=== PATIENT | male | born 1995 | race Caucasian/White ===

== ENCOUNTER 2017-09-15 10:15 | Emergency (ER) | payer BC ==
[2017-09-15 10:19] VITALS: BP 134/78
[2017-09-15 11:31] LABS: APPEARANCE,URINE CLEAR; BILIRUBIN,URINE NEGATIVE (NEGATIVE); COLOR,URINE AMBER; GLUCOSE, URINE NEGATIVE (NEGATIVE); KETONES,URINE NEGATIVE (NEGATIVE); LEUKOCYTE ESTERASE,URINE NEGATIVE (NEGATIVE); NITRITE,URINE POSITIVE (NEGATIVE); PROTEIN,URINE NEGATIVE (NEGATIVE); URINE SPECIFIC GRAVITY 1.011
--- NOTE | 2017-09-15 11:32 | ER Document Report ---
ED GI/ - General Chief Complaint: Abdominal Pain Stated Complaint: PAINFUL URINATION Time Seen by Provider: 09/15/17 11:25 Mode of Arrival: Ambulatory Information source: Patient Notes: This 22-year-old male patient comes emergency room complaining of frequency and dysuria. He reports Wednesday p.m. on 09/13/2017 of having some partial flow when he tried to urinate, reports something shot out and then the flow was okay but he began having burning with urination. The burning is only controlled when he takes Azo-Standard. There is no fevers. This morning he noted a reddish tinge to the urine. He also has complained of her left upper quadrant abdominal pain and right lower quadrant abdominal pain which moves around and states "if I move , it moves". No past history of renal stones. TRAVEL OUTSIDE OF THE [place] IN LAST 30 DAYS: No - Related Data Allergies/Adverse Reactions: No Known Allergies Allergy (Verified 09/15/17 11:53) Past Medical History - General Information source: Patient - Social History Smoking Status: Current Some Day Smoker Cigarette use (# per day): Yes - 1 cigarette per week Chew tobacco use (# tins/day): Yes - dip Smoking Education Provided: Yes - 3 minutes Frequency of alcohol use: None Drug Abuse: None Lives with: Spouse/Significant other Family History: Reviewed & Not Pertinent Patient has suicidal ideation: No Patient has homicidal ideation: No - Medical History Medical History: Negative Surgical Hx: Negative Review of Systems - Review of Systems Constitutional: No symptoms reported EENT: No symptoms reported Cardiovascular: No symptoms reported Respiratory: No symptoms reported Gastrointestinal: See HPI Genitourinary: See HPI Male Genitourinary: No symptoms reported Musculoskeletal: No symptoms reported Skin: No symptoms reported Hematologic/Lymphatic: No symptoms reported Neurological/Psychological: No symptoms reported Physical Exam - Vital signs Vitals: Temp Pulse Resp BP Pulse Ox 98.2 F 79 15 134/78 H 98 09/15/17 10:18 09/15/17 10:18 09/15/17 10:18 09/15/17 10:18 09/15/17 10:18 Interpretation: Normal - General General appearance: Appears well, Alert In distress: None - HEENT Head: Normocephalic, Atraumatic Eyes: Normal Pupils: PERRL - Respiratory Respiratory status: No respiratory distress Breath sounds: Normal - Cardiovascular Rhythm: Regular Heart sounds: Normal auscultation Murmur: No - Abdominal Inspection: Normal Bowel sounds: Normal Tenderness: Nontender - Back Back: Normal. No: CVA tenderness - Extremities General upper extremity: Normal inspection General lower extremity: Normal inspection - Neurological Neuro grossly intact: Yes - Psychological Associated symptoms: Normal affect, Normal mood - Skin Skin Temperature: Warm Skin Moisture: Dry Skin Color: Normal Course - Vital Signs Vital signs: Temp Pulse Resp BP Pulse Ox 98.2 F 79 18 134/78 H 98 09/15/17 10:18 09/15/17 10:18 09/15/17 11:29 09/15/17 10:18 09/15/17 10:18 - Laboratory Laboratory results interpreted by me: 09/15/17 11:05 Urine Nitrite POSITIVE H Urine Urobilinogen 2.0 H Discharge - Discharge Clinical Impression: Urinary tract infection Qualifiers: Urinary tract infection type: urethritis Qualified Code(s): N34.2 - Other urethritis Condition: Stable Disposition: HOME, SELF-CARE Additional Instructions: Urinary Tract Infection: Your evaluation indicates that you have a urinary tract infection. This is due to germs growing in the bladder. This is a common problem. This infection usually responds quickly to antibiotics. Your antibiotic should be taken exactly as prescribed. Drink plenty of fluids -- three to four quarts a day. Occasionally, a bladder anesthetic will be prescribed to help stop the feeling of urgency until the antibiotic has a chance to clear the infection. This may cause your urine to be dark orange. Certain urine infections require a culture. If the doctor obtained a culture, the results will be back in two days. You should call to see if a change in treatment is needed. A repeat urinalysis after you finish treatment is often recommended. The physician will let you know if further testing is required. Call the doctor if you develop fever, chills, flank pain, inability to urinate, or blood in the urine. //////////////////////////////////////////////////////////////////////////////// //////////////////////////////////////////////////////////////////////////////// ///////////////// Take the antibiotics as prescribed. Take lots of fluids throughout the day in the evening. Continue taking the Azo-Standard for the burning sensation if needed. Follow-up with a local primary care provider if not improving. RETURN TO THE EMERGENCY ROOM IF ANY NEW OR WORSENING SYMPTOMS. Prescriptions: Doxycycline Hyclate 100 mg PO BID #14 tablet
== END 2017-09-15 12:12 | disposition home or self-care (01) ==
LOC: ER 10:15
DX: N34.2 Other urethritis (principal); F17.210 Nicotine dependence, cigarettes, uncomplicated; Z71.6 Tobacco abuse counseling
CPT/HCPCS: 81001; 87086; 99284

== ENCOUNTER 2017-09-17 10:56 | Emergency (ER) | payer BC ==
--- NOTE | 2017-09-17 12:16 | ER Document Report ---
ED General - General Chief Complaint: Urinary Problem Stated Complaint: BLOOD IN URINE Time Seen by Provider: 09/17/17 12:10 Mode of Arrival: Ambulatory Information source: Patient Notes: 22-year-old male presents with 5 day duration of burning on urination. Patient was seen here treated for urinary tract infection was noted to have positive nitrates in the urine. Urine culture did not grow out any organism. Patient notes he had some blood in his urine. Patient notes enlarged lymph nodes in his groin now TRAVEL OUTSIDE OF THE [place] IN LAST 30 DAYS: No - HPI Onset: Last week Onset/Duration: Persistent Quality of pain: Burning Severity: Mild Pain Level: 1 Associated symptoms: Other Exacerbated by: Other - urination Relieved by: Denies Similar symptoms previously: Yes Recently seen / treated by doctor: Yes - Related Data Allergies/Adverse Reactions: No Known Allergies Allergy (Verified 09/15/17 11:53) Past Medical History - Social History Smoking Status: Current Every Day Smoker Cigarette use (# per day): No Chew tobacco use (# tins/day): Yes - dip Smoking Education Provided: No Frequency of alcohol use: None Drug Abuse: None Family History: Reviewed & Not Pertinent Patient has suicidal ideation: No Patient has homicidal ideation: No Renal/ Medical History: Denies: Hx Peritoneal Dialysis Review of Systems - Review of Systems Notes: REVIEW OF SYSTEMS: CONSTITUTIONAL : Denies fever, chills, or sweats. Denies recent illness. EENT: Denies eye, ear, throat, or mouth pain or symptoms. Denies nasal or sinus congestion or discharge. Denies throat, tongue, or mouth swelling or difficulty swallowing. CARDIOVASCULAR: Denies chest pain. Denies palpitations or racing or irregular heart beat. Denies ankle edema. RESPIRATORY: Denies cough, cold, or chest congestion. Denies shortness of breath, difficulty breathing, or wheezing. GASTROINTESTINAL: Denies abdominal pain or distention. Denies nausea, vomiting , or diarrhea. Denies blood in vomitus, stools, or per rectum. Denies black, tarry stools. Denies constipation. GENITOURINARY: blood in urine burning on urination e. MUSCULOSKELETAL: Denies back or neck pain or stiffness. Denies joint pain or swelling. SKIN: Denies rash, lesions or sores. HEMATOLOGIC : Denies easy bruising or bleeding. LYMPHATIC: Admits to groin swelling NEUROLOGICAL: Denies confusion or altered mental status. Denies passing out or loss of consciousness. Denies dizziness or lightheadedness. Denies headache. Denies weakness or paralysis or loss of use of either side. Denies problems with gait or speech. Denies sensory loss, numbness, or tingling. Denies seizures. PSYCHIATRIC: Denies anxiety or stress. Denies depression, suicidal ideation, or homicidal ideation. ALL OTHER SYSTEMS REVIEWED AND NEGATIVE. Dictation was performed using [employer] voice recognition software PHYSICAL EXAMINATION: GENERAL: Well-appearing, well-nourished and in no acute distress. HEAD: Atraumatic, normocephalic. EYES: Pupils equal round and reactive to light, extraocular movements intact, sclera anicteric, conjunctiva are normal. ENT: Nares patent, oropharynx clear without exudates. Moist mucous membranes. NECK: Normal range of motion, supple without lymphadenopathy LUNGS: Breath sounds clear to auscultation bilaterally and equal. No wheezes rales or rhonchi. HEART: Regular rate and rhythm without murmurs ABDOMEN: Soft, nontender, nondistended abdomen. No guarding, no rebound. No masses appreciated. Musculoskeletal: Normal range of motion, no pitting or edema. No cyanosis. NEUROLOGICAL: Cranial nerves grossly intact. Normal speech, normal gait. Normal sensory, motor exams PSYCH: Normal mood, normal affect. SKIN: Bilateral inguinal adenopathy warm, Dry, normal turgor, no rashes or lesions noted. Physical Exam - Vital signs Vitals: Temp Pulse Resp BP Pulse Ox 98.0 F 84 20 136/83 H 97 09/17/17 11:13 09/17/17 11:13 09/17/17 11:13 09/17/17 11:13 09/17/17 11:13 Course - Re-evaluation Re-evalutation: 09/17/17 12:[address] pending 09/17/17 19:14 Patient's urinalysis is consistent with nitrates, the CT itself notes no acute abnormality, there is no STD noted on urinalysis. Therefore I believe the patient has a resistant UTI which for some reason had no growth, I will switch antibiotic from doxycycline to Cipro and give the patient urology follow-up as I am not 100% certain why he is having the symptoms. Patient has been made aware of this and understands and will follow-up with urology After performing a Medical Screening Examination, I estimate there is LOW risk for ACUTE APPENDICITIS, BOWEL OBSTRUCTION, ACUTE CHOLECYSTITIS, PERFORATED DIVERTICULITIS, INCARCERATED HERNIA, PANCREATITIS, TESTICULAR TORSION or PERFORATED ULCER, thus I consider the discharge disposition reasonable. Also, there is no evidence or peritonitis, sepsis, or toxicity. I have reevaluated this patient multiple times and no significant life threatening changes are noted. The patient and I have discussed the diagnosis and risks, and we agree with discharging home with close follow-up with the understanding that symptoms and presentations can change. We also discussed returning to the Emergency Department immediately if new or worsening symptoms occur. We have discussed the symptoms which are most concerning (e.g., bloody stool, fever, changing or worsening pain, intractable vomiting - standard verbal up date) that necessitate immediate return. - Vital Signs Vital signs: Temp Pulse Resp BP Pulse Ox 98.0 F 72 20 148/90 H 99 09/17/17 11:13 09/17/17 14:18 09/17/17 11:13 09/17/17 14:18 09/17/17 14:18 - Laboratory Laboratory results interpreted by me: 09/17/17 12:15 Urine Nitrite POSITIVE H Urine Urobilinogen 4.0 H - Diagnostic Test Radiology reviewed: Image reviewed, Reports reviewed - no Acute abnormality Discharge - Discharge Clinical Impression: Dysuria Urinary tract infection Qualifiers: Urinary tract infection type: acute cystitis Hematuria presence: without hematuria Qualified Code(s): N30.00 - Acute cystitis without hematuria Condition: Stable Disposition: HOME, SELF-CARE Instructions: Urinary Tract Infection ([facility]) Prescriptions: Ciprofloxacin HCl [Cipro 500 mg Tablet] 500 mg PO BID #20 tablet Referrals: ARON GALAN MD [ACTIVE STAFF] - Follow up in 3-5 days
[2017-09-17 12:35] LABS: APPEARANCE,URINE CLEAR; BILIRUBIN,URINE NEGATIVE (NEGATIVE); GLUCOSE, URINE NEGATIVE (NEGATIVE); KETONES,URINE NEGATIVE (NEGATIVE); LEUKOCYTE ESTERASE,URINE NEGATIVE (NEGATIVE); NITRITE,URINE POSITIVE (NEGATIVE); PROTEIN,URINE NEGATIVE (NEGATIVE); URINE SPECIFIC GRAVITY 1.013
--- NOTE | 2017-09-17 12:37 | RADIOLOGY REPORT (SQ) ---
EXAM DESCRIPTION: CT LTD RENAL STONE PROTOCOL ON COMPLETED DATE/TIME: 09/17/2017 12:27 pm REASON FOR STUDY: hematuria COMPARISON: None. TECHNIQUE: CT scan of the abdomen and pelvis performed without intravenous or oral contrast. Images reviewed with lung, soft tissue, and bone windows. Reconstructed coronal and sagittal MPR images revi ewed. All images stored on PACS. All CT scanners at this facility use dose modulation, iterative reconstruction, and/or weight based d osing when appropriate to reduce radiation dose to as low as reasonably achievable (ALARA). [facility]: Dose Right [facility]: CareDose [facility]: Dose Right [facility]: Teradose 4D [facility]: [employer] RADIATION DOSE: mGy. LIMITATIONS: None. FINDINGS: LOWER CHEST: No significant findings. No nodules or infiltrates. NON-CONTRASTED LIVER, SPLEEN, ADRENALS: Evaluation limited by lack of IV contrast. No identified sign ificant masses. PANCREAS: No masses. No peripancreatic inflammatory changes. GALLBLADDER: No identified stones by CT criteria. No inflammatory changes to suggest cholecystitis. RIGHT KIDNEY AND URETER: No suspicious masses. Assessment limited by lack of IV contrast. No signif icant calcifications. No hydronephrosis or hydroureter. LEFT KIDNEY AND URETER: No suspicious masses. Assessment limited by lack of IV contrast. No signifi cant calcifications. No hydronephrosis or hydroureter. AORTA AND RETROPERITONEUM: No aneurysm. No retroperitoneal masses or adenopathy. BOWEL AND PERITONEAL CAVITY: No obvious masses or inflammatory changes. No free fluid. A moderate am ount a gas and fecal material is identified throughout the colon. APPENDIX: Not identified PELVIS, BLADDER, AND ABDOMINAL WALL:No abnormal masses. No free fluid. Bladder normal. BONES: No significant findings. OTHER: No other significant finding. IMPRESSION: NO SIGNIFICANT OR ACUTE PROCESS IN THE ABDOMEN OR PELVIS. COMMENT: Quality ID # [id number]: Final reports with documentation of one or more dose reduction techniques (e.g., Automated exposure control, adjustment of the mA and/or kV according to patient size, use of iterative reconstruction technique) TECHNICAL DOCUMENTATION: JOB ID: [id number] [employer]- All Rights Reserved
[2017-09-17 12:40] LABS: COLOR,URINE DARK YELLOW
[2017-09-17 14:00] LABS: CHLAM PCR NOT DETECTED (NOT DETECT); GON PCR NOT DETECTED (NOT DETECT)
[2017-09-17 14:24] VITALS: BP 148/90
== END 2017-09-17 14:24 | disposition home or self-care (01) ==
LOC: ER 10:56
DX: N30.00 Acute cystitis without hematuria (principal); R59.0 Localized enlarged lymph nodes; F17.200 Nicotine dependence, unspecified, uncomplicated
CPT/HCPCS: 76380; 81001; 87491; 87591; 99284

== ENCOUNTER 2018-04-06 11:37 | Emergency (ER) | payer OTHER, BC ==
--- NOTE | 2018-04-06 12:13 | ER Document Report ---
ED General - General Chief Complaint: Chest Pain Stated Complaint: CHEST TIGHTNESS Time Seen by Provider: 04/06/18 12:10 Notes: Chief complaint: Chest pain History of complain:( obtained from----patient) 23 years old male presents today with on and off left-sided chest pain and left arm numbness. Especially at work when he stressed out. One episode happened 4 months ago again yesterday and today. Currently has no pain or discomfort. It lasted for about an hour at work. Not associated with any nausea vomiting palpitation or diaphoresis. He also states that he gets cramps and numbness and tingling sensation of both upper limbs and lower limbs on and off. Onset: As above as above Duration: As above Severity: Mild Quality: Context: Stress at work Exacerbating factor and relieving factors: Work related REVIEW OF SYSTEMS: CONSTITUTIONAL : Denies fever, chills, or sweats. Denies recent illness. EENT: Denies eye, ear, throat, or mouth pain or symptoms. Denies nasal or sinus congestion or discharge. Denies throat, tongue, or mouth swelling or difficulty swallowing. CARDIOVASCULAR: Denies chest pain. Denies palpitations or racing or irregular heart beat. Denies ankle edema. RESPIRATORY: Denies cough, cold, or chest congestion. Denies shortness of breath, difficulty breathing, or wheezing. GASTROINTESTINAL: Denies distention. Denies nausea, vomiting, or diarrhea. Denies blood in vomitus, stools, or per rectum. Denies black, tarry stools. Denies constipation. GENITOURINARY: Denies difficulty urinating, painful urination, burning, frequency, blood in urine, or discharge. FEMALE GENITOURINARY: Denies vaginal bleeding, heavy or abnormal periods, irregular periods. Denies vaginal discharge or odor. MUSCULOSKELETAL: Denies back or neck pain or stiffness. Denies joint pain or swelling. SKIN: Denies rash, lesions or sores. HEMATOLOGIC : Denies easy bruising or bleeding. LYMPHATIC: Denies swollen, enlarged glands. NEUROLOGICAL: Denies confusion or altered mental status. Denies passing out or loss of consciousness. Denies dizziness or lightheadedness. Denies headache. Denies weakness or paralysis or loss of use of either side. Denies problems with gait or speech. Denies sensory loss, numbness, or tingling. Denies seizures. PSYCHIATRIC: Denies anxiety or stress. Denies depression, suicidal ideation, or homicidal ideation. ALL OTHER SYSTEMS REVIEWED AND NEGATIVE. PHYSICAL EXAMINATION: GENERAL: Well-appearing, well-nourished and in no acute distress. HEAD: Atraumatic, normocephalic. EYES: Pupils equal round and reactive to light, extraocular movements intact, conjunctiva are normal. ENT: Nares patent, oropharynx clear without exudates. Moist mucous membranes. NECK: Normal range of motion, supple without lymphadenopathy LUNGS: Breath sounds clear to auscultation bilaterally and equal. No wheezes rales or rhonchi. HEART: Regular rate and rhythm without murmurs ABDOMEN: Soft, nontender, nondistended abdomen. No guarding, no rebound. No masses appreciated. Examination of genitals-deferred Musculoskeletal: Normal range of motion, no pitting or edema. No cyanosis. NEUROLOGICAL: Cranial nerves grossly intact. Normal speech, normal gait. Normal sensory, motor exams PSYCH: Normal mood, normal affect. SKIN: Warm, Dry, normal turgor, no rashes or lesions noted. Dictation was performed using [employer] voice recognition software TRAVEL OUTSIDE OF THE [place] IN LAST 30 DAYS: No - HPI Notes: Dictated - Related Data Allergies/Adverse Reactions: No Known Allergies Allergy (Verified 04/06/18 11:38) Past Medical History - Social History Smoking Status: Never Smoker Chew tobacco use (# tins/day): No Frequency of alcohol use: None Drug Abuse: None Lives with: Family Family History: Reviewed & Not Pertinent Patient has suicidal ideation: No Patient has homicidal ideation: No Renal/ Medical History: Denies: Hx Peritoneal Dialysis Review of Systems - Review of Systems Notes: Dictated Physical Exam - Vital signs Vitals: Temp Pulse Resp BP Pulse Ox 97.9 F 65 18 126/81 H 98 04/06/18 11:48 04/06/18 11:48 04/06/18 11:48 04/06/18 11:48 04/06/18 11:48 - Notes Notes: Dictated Course - Vital Signs Vital signs: Temp Pulse Resp BP Pulse Ox 97.9 F 87 16 128/83 H 90 L 04/06/18 14:10 04/06/18 14:10 04/06/18 14:10 04/06/18 14:10 04/06/18 14:10 - Diagnostic Test Radiology reviewed: Reports reviewed - Chest x-ray reported by radiologist as normal Discharge - Discharge Clinical Impression: Anxiety Chest pain Qualifiers: Chest pain type: unspecified Qualified Code(s): R07.9 - Chest pain, unspecified Condition: Fair Disposition: HOME, SELF-CARE Instructions: Chest Wall Pain ([facility]), Anxiety ([facility]) Prescriptions: Buspirone HCl [Buspar 5 mg Tablet] 1 tab PO BID #60 tab
--- NOTE | 2018-04-06 13:20 | RADIOLOGY REPORT (SQ) ---
EXAM DESCRIPTION: CHEST 2 VIEWS COMPLETED DATE/TIME: 04/06/2018 12:25 pm REASON FOR STUDY: chest pain COMPARISON: None. EXAM PARAMETERS: NUMBER OF VIEWS: two views TECHNIQUE: Digital Frontal and Lateral radiographic views of the chest acquired. RADIATION DOSE: NA LIMITATIONS: none FINDINGS: LUNGS AND PLEURA: No opacities, masses or pneumothorax. No pleural effusion. MEDIASTINUM AND HILAR STRUCTURES: No masses or contour abnormalities. HEART AND VASCULAR STRUCTURES: Heart normal size. No evidence for failure. BONES: No acute findings. HARDWARE: None in the chest. OTHER: No other significant finding. IMPRESSION: NO ACUTE RADIOGRAPHIC FINDING IN THE CHEST. TECHNICAL DOCUMENTATION: JOB ID: [id number] [employer]- All Rights Reserved Reading location - IP/workstation name: [email or web address]
[2018-04-06 13:37] LABS: CREATINE KINASE MB < 0.22 ng/mL (<4.55); TROPONIN I < 0.012 ng/mL
[2018-04-06 14:11] VITALS: BP 128/83
--- NOTE | 2018-04-06 21:22 | EKG REPORT ---
SEVERITY:- NORMAL ECG - SINUS RHYTHM : Confirmed by: Dorie Crandall MD 06-Apr-2018 21:22:23
== END 2018-04-06 14:18 | disposition home or self-care (01) ==
LOC: ER 11:37
DX: F41.9 Anxiety disorder, unspecified (principal); F43.9 Reaction to severe stress, unspecified; R07.89 Other chest pain; R20.0 Anesthesia of skin; R20.2 Paresthesia of skin; R25.2 Cramp and spasm
CPT/HCPCS: 36415; 71046; 82550; 82553; 84484; 93005; 93010; 99285

== ENCOUNTER 2018-07-25 10:37 | Emergency (ER) | payer BC ==
--- NOTE | 2018-07-25 11:14 | ER Document Report ---
ED Medical Screen (RME) - General Chief Complaint: Dizziness Stated Complaint: HEAD INJURY Time Seen by Provider: 07/25/18 11:06 Notes: 23-year-old male patient reports 2 days ago about 2 PM struck his frontal head area on excavator bucket as he was trying to dodge a mud puddle and did not see the bucket because he was looking down. There was no loss of consciousness, however he states that it did "not to be silly". He reports that evening he began having dizziness that has been persistent. The dizziness is not provoked by head movement, bending over or standing up etc. He states it seems to be made worse when he is taking a shower. There is no nausea or vomiting. I have greeted and performed a rapid initial assessment of this patient. A comprehensive ED assessment and evaluation of the patient, analysis of test results and completion of the medical decision making process will be conducted by additional ED providers. TRAVEL OUTSIDE OF THE [place] IN LAST 30 DAYS: No - Related Data Allergies/Adverse Reactions: No Known Allergies Allergy (Verified 04/06/18 11:38) Past Medical History Renal/ Medical History: Denies: Hx Peritoneal Dialysis Physical Exam - Vital signs Vitals: Temp Pulse Resp BP Pulse Ox 97.1 F 90 18 148/90 H 100 07/25/18 10:43 07/25/18 10:43 07/25/18 10:43 07/25/18 10:43 07/25/18 10:43 Course - Vital Signs Vital signs: Temp Pulse Resp BP Pulse Ox 97.1 F 90 18 148/90 H 100 07/25/18 10:43 07/25/18 10:43 07/25/18 10:43 07/25/18 10:43 07/25/18 10:43
--- NOTE | 2018-07-25 11:54 | RADIOLOGY REPORT (SQ) ---
EXAM DESCRIPTION: CT HEAD WITHOUT COMPLETED DATE/TIME: 07/25/2018 11:32 am REASON FOR STUDY: Hit head on excavator bucket 2 days ago, persistent dizziness COMPARISON: None. TECHNIQUE: Axial images acquired through the brain without intravenous contrast. Images reviewed wi th bone, brain and subdural windows. Additional sagittal and coronal reconstructions were generated. Images stored on PACS. All CT scanners at this facility use dose modulation, iterative reconstruction, and/or weight based d osing when appropriate to reduce radiation dose to as low as reasonably achievable (ALARA). [facility]: Dose Right [facility]: CareDose [facility]: Dose Right [facility]: Teradose 4D [facility]: [employer] RADIATION DOSE: CT Rad equipment meets quality standard of care and radiation dose reduction techniq ues were employed. CTDIvol: 53.2 mGy. DLP: 1017 mGy-cm. mGy. LIMITATIONS: None. FINDINGS: VENTRICLES: Normal size and contour. CEREBRUM: No masses. No hemorrhage. No midline shift. No evidence for acute infarction. Normal gra y/white matter differentiation. No areas of low density in the white matter. CEREBELLUM: No masses. No hemorrhage. No alteration of density. No evidence for acute infarction. EXTRAAXIAL SPACES: No fluid collections. No masses. ORBITS AND GLOBE: No intra- or extraconal masses. Normal contour of globe without masses. CALVARIUM: No fracture. PARANASAL SINUSES: No fluid or mucosal thickening. SOFT TISSUES: No mass or hematoma. OTHER: No other significant finding. IMPRESSION: NORMAL BRAIN CT WITHOUT CONTRAST. EVIDENCE OF ACUTE STROKE: NO. COMMENT: Quality ID # [id number]: Final reports with documentation of one or more dose reduction techniques (e.g., Automated exposure control, adjustment of the mA and/or kV according to patient size, use of iterative reconstruction technique) TECHNICAL DOCUMENTATION: JOB ID: [id number] [employer]- All Rights Reserved Reading location - IP/workstation name: [email or web address]
--- NOTE | 2018-07-25 12:08 | ER Document Report ---
ED General - General Chief Complaint: Dizziness Stated Complaint: HEAD INJURY Time Seen by Provider: 07/25/18 11:06 TRAVEL OUTSIDE OF THE [place] IN LAST 30 DAYS: No - HPI Notes: Patient is a 23-year-old male that presents to the emergency department for chief complaint of dizziness after head injury. Patient reports 2 days ago while walking he hit his head on an excavator. He states that he initially had some ringing in his ears but did not lose consciousness. Since then he has had intermittent episodes of blurry vision and dizziness. He states the dizziness feels like he is intoxicated. It does last a few minutes and then completely resolved. He denies any nausea, vomiting , numbness or weakness. He currently states that the symptoms are not ongoing. Patient saw his primary care doctor today who referred him to the emergency room for further evaluation. He denies history of concussions in the past. He denies taking any blood thinning medications. Past Medical History: Negative Past Surgical History: Negative Social History: Dip tobacco. Occasional alcohol. Denies drug use Family History: Reviewed and noncontributory for presenting illness Allergies: Reviewed, see documented allergy list. REVIEW OF SYSTEMS: CONSTITUTIONAL : No fever No chills No diaphoresis No recent illness EENT: vision changes No congestion No sore throat CARDIOVASCULAR: No chest pain No palpitations RESPIRATORY: No shortness of breath No cough No difficulty breathing GASTROINTESTINAL: No abdominal pain No nausea No vomiting No diarrhea GENITOURINARY: No dysuria No hematuria No difficulty urinating MUSCULOSKELETAL: No back pain No leg pain No arm pain SKIN: No rashes No lesions LYMPHATIC: No swollen, enlarged glands. NEUROLOGICAL: Dizziness No lightheadedness No headache No weakness No paresthesias PSYCHIATRIC: No anxiety No depression PHYSICAL EXAMINATION: Vital signs reviewed, nursing noted reviewed. GENERAL: Well-appearing, well-nourished and in no acute distress. HEAD: Atraumatic, normocephalic. EYES: Eyes appear normal, extraocular movements intact, sclera anicteric, conjunctiva are normal. ENT: nares patent, oropharynx clear without exudates. Moist mucous membranes. NECK: Normal range of motion, supple without lymphadenopathy LUNGS: Breath sounds clear to auscultation bilaterally and equal. No wheezes rales or rhonchi. HEART: Regular rate and rhythm without murmurs ABDOMEN: Soft, nontender, normoactive bowel sounds. No rebound, guarding, or rigidity. No masses appreciated. EXTREMITIES: Nontender, good range of motion, no pitting or edema. NEUROLOGICAL: No focal neurological deficits. Moves all extremities spontaneously Motor and sensory grossly intact on exam. PSYCH: Normal mood, normal affect. SKIN: Warm, Dry, normal turgor, no rashes or lesions noted on exposed skin - Related Data Allergies/Adverse Reactions: No Known Allergies Allergy (Verified 04/06/18 11:38) Past Medical History - Social History Smoking Status: Former Smoker Chew tobacco use (# tins/day): No - 1 Frequency of alcohol use: 1 beer a month Drug Abuse: None Family History: Reviewed & Not Pertinent Patient has suicidal ideation: No Patient has homicidal ideation: No Renal/ Medical History: Denies: Hx Peritoneal Dialysis Physical Exam - Vital signs Vitals: Temp Pulse Resp BP Pulse Ox 97.1 F 90 18 148/90 H 100 07/25/18 10:43 07/25/18 10:43 07/25/18 10:43 07/25/18 10:43 07/25/18 10:43 Course - Re-evaluation Re-evalutation: 07/25/18 12:06 Vitals reviewed. Nursing notes reviewed. Patient has no focal neurologic deficits or symptoms at this time. CT scan of his brain obtained shows no acute intracranial pathology. Patient was counseled on concussion guidelines and second hit syndrome. He was encouraged to follow with his primary care doctor in the next few days for reevaluation and close monitoring of his concussion-like symptoms. Patient will be discharged home today in stable condition. Head CT 07/25/18 11:12 IMPRESSION: NORMAL BRAIN CT WITHOUT CONTRAST. EVIDENCE OF ACUTE STROKE: NO. - Vital Signs Vital signs: Temp Pulse Resp BP Pulse Ox 97.1 F 90 18 148/90 H 100 07/25/18 10:43 07/25/18 10:43 07/25/18 10:43 07/25/18 10:43 07/25/18 10:43 Discharge - Discharge Clinical Impression: Dizziness Closed head injury Qualifiers: Encounter type: initial encounter Qualified Code(s): S09.90XA - Unspecified injury of head, initial encounter Condition: Stable Disposition: HOME, SELF-CARE Instructions: Concussion ([facility]), Post-Concussion Syndrome ([facility]) Additional Instructions: Please return to the emergency department if you have any worsening, or concern of your symptoms. Please return to the emergency department if you develop chest pain, difficulty breathing, severe abdominal pain, or ongoing vomiting. Please follow-up with your primary care physician in 2-3 days and any other recommended physicians. If prescribed, take all medications as directed. If you have any questions or concerns do not hesitate to return the emergency department for evaluation. []
[2018-07-25 12:21] VITALS: BP 142/72
== END 2018-07-25 12:20 | disposition home or self-care (01) ==
LOC: ER 10:37
DX: S09.90XA Unspecified injury of head, initial encounter (principal); R42 Dizziness and giddiness; H53.8 Other visual disturbances; W22.8XXA Striking against or struck by other objects, initial encounter; Y93.01 Activity, walking, marching and hiking; Z87.891 Personal history of nicotine dependence
CPT/HCPCS: 70450; 99284

== ENCOUNTER 2018-08-11 01:09 | Emergency (ER) | payer BC ==
--- NOTE | 2018-08-11 02:44 | ER Document Report ---
ED Cardiac - General Chief Complaint: Chest Tightness Stated Complaint: CHEST PAIN Time Seen by Provider: 08/11/18 02:44 Mode of Arrival: Ambulatory Information source: Patient Notes: Patient is a 23-year-old male with no significant past medical history who presents with isolated episode of chest pain that awoke her from sleep. Pain is left-sided, intermittently sharp and aching sensation, has now completely resolved. Patient reports it lasted approximately 30 minutes and denies being associated with shortness of breath or any other symptom. Patient reports "I just want a get checked out." TRAVEL OUTSIDE OF THE [place] IN LAST 30 DAYS: No - HPI Patient complains to provider of: Chest pain Was the onset of pain: Sudden Is the pain a: New problem Chest pain location: Pleuritic Quality of pain: Intermittent, Achy Chest pain radiation location: None Severity now: None Severity at worst: Mild Pain level currently: Denies Cardiac risk factors: None Positive cardiac history: No Associated symptoms: None Exacerbated by: Denies Relieved by: Nothing Similar symptoms previously: No Recently seen / treated by doctor: No - Related Data Allergies/Adverse Reactions: No Known Allergies Allergy (Verified 04/06/18 11:38) Past Medical History - General Information source: Patient - Social History Smoking Status: Never Smoker Chew tobacco use (# tins/day): Yes Frequency of alcohol use: None Drug Abuse: None Lives with: Family Family History: Reviewed & Not Pertinent Patient has suicidal ideation: No Patient has homicidal ideation: No - Past Medical History Cardiac Medical History: Reports: None Pulmonary Medical History: Reports: None EENT Medical History: Reports: None Neurological Medical History: Reports: None Endocrine Medical History: Reports: None Renal/ Medical History: Reports: None. Denies: Hx Peritoneal Dialysis Malignancy Medical History: Reports None GI Medical History: Reports: None Musculoskeletal Medical History: Reports None Skin Medical History: Reports None Psychiatric Medical History: Reports: Hx Anxiety Traumatic Medical History: Reports: None Infectious Medical History: Reports: None Surgical Hx: Negative Past Surgical History: Reports: None - Immunizations Immunizations up to date: Yes Hx Diphtheria, Pertussis, Tetanus Vaccination: Yes Review of Systems - Review of Systems Constitutional: No symptoms reported EENT: No symptoms reported Cardiovascular: See HPI, Chest pain Respiratory: No symptoms reported Gastrointestinal: No symptoms reported Genitourinary: No symptoms reported Male Genitourinary: No symptoms reported Musculoskeletal: No symptoms reported Skin: No symptoms reported Hematologic/Lymphatic: No symptoms reported Neurological/Psychological: No symptoms reported -: Yes All other systems reviewed and negative Physical Exam - Vital signs Vitals: Temp Pulse Resp BP Pulse Ox 98.6 F 74 16 140/71 H 100 08/11/18 01:14 08/11/18 01:14 08/11/18 01:14 08/11/18 01:14 08/11/18 01:14 Interpretation: Normal - General General appearance: Appears well, Alert In distress: None - HEENT Head: Normocephalic, Atraumatic Eyes: Normal Pupils: PERRL - Respiratory Respiratory status: No respiratory distress Chest status: Nontender Breath sounds: Normal Chest palpation: Normal - Cardiovascular Rhythm: Regular Heart sounds: Normal auscultation Murmur: No - Abdominal Inspection: Normal Distension: No distension Bowel sounds: Normal Tenderness: Nontender Organomegaly: No organomegaly - Rectal Notes: Deferred - Genitourinary Notes: Deferred - Back Back: Normal, Nontender - Extremities General upper extremity: Normal inspection, Nontender, Normal color, Normal ROM , Normal temperature General lower extremity: Normal inspection, Nontender, Normal color, Normal ROM , Normal temperature, Normal weight bearing. No: Elvis's sign - Neurological Neuro grossly intact: Yes Cognition: Normal Orientation: AAOx4 Elías Coma Scale Eye Opening: Spontaneous Elías Coma Scale Verbal: Oriented [place] Coma Scale Motor: Obeys Commands Elías Coma Scale Total: 15 Speech: Normal Motor strength normal: LUE, RUE, LLE, RLE Sensory: Normal - Psychological Associated symptoms: Normal affect, Normal mood - Skin Skin Temperature: Warm Skin Moisture: Dry Skin Color: Normal Course - Re-evaluation Re-evalutation: 08/11/18 04:00 Labs and urinalysis are negative. Chest x-ray is negative, EKG shows no concerning changes. Patient will be discharged home with return precautions and follow-up as needed. He understands and agrees with the plan. - Vital Signs Vital signs: Temp Pulse Resp BP Pulse Ox 98.6 F 74 16 140/71 H 100 08/11/18 01:14 08/11/18 01:14 08/11/18 01:14 08/11/18 01:14 08/11/18 01:14 - Laboratory Laboratory results interpreted by me: Urinalysis, as well as urine drug screen, are negative. - Diagnostic Test Radiology reviewed: Reports reviewed - EKG Interpretation by Me EKG shows normal: Sinus rhythm Rate: Normal Rhythm: NSR [place]/QRS: No: LBBB P Waves: No: JUHI, LAE, Absent, AV Dissociation, Other Heart block present: No: 1st Degree, Mobitz 1, Mobitz 2, CHB (3rd degree block) When compared to previous EKG there are: No significant change Discharge - Discharge Clinical Impression: Chest pain Qualifiers: Chest pain type: pleurodynia Qualified Code(s): R07.81 - Pleurodynia Condition: Good Disposition: HOME, SELF-CARE Instructions: Chest Wall Pain ([facility]) Additional Instructions: Please follow-up with your regular physician as needed. Return to the emergency department if you experience worsening pain, trouble breathing, or have any other concerning symptom. Prescriptions: Lorazepam [Ativan 0.5 mg Tablet] 0.5 mg PO Q6H PRN #30 tab PRN Reason: Referrals: EMILI PATRICIO, MAT[employer] EXPEDITOR-C [Primary Care Provider] - Follow up as needed Print Language: Montserratian
--- NOTE | 2018-08-11 03:38 | RADIOLOGY REPORT (SQ) ---
EXAM DESCRIPTION: XR CHEST 1 VIEW COMPLETED DATE/TME: 08/11/2018 02:49 CLINICAL HISTORY: 23 years, Male, Chest pain COMPARISON: 04/06/2018 chest x-ray NUMBER OF VIEWS: 1 TECHNIQUE: Frontal view the chest LIMITATIONS: None. FINDINGS: Heart size is normal. Lungs are clear. No pneumothorax IMPRESSION: Negative chest copyright 2010 [employer]- All Rights Reserved
[2018-08-11 03:43] LABS: APPEARANCE,URINE CLEAR; BILIRUBIN,URINE NEGATIVE (NEGATIVE); COLOR,URINE STRAW; GLUCOSE, URINE NEGATIVE (NEGATIVE); KETONES,URINE NEGATIVE (NEGATIVE); LEUKOCYTE ESTERASE,URINE NEGATIVE (NEGATIVE); NITRITE,URINE NEGATIVE (NEGATIVE); PROTEIN,URINE NEGATIVE (NEGATIVE); UROBILINOGEN,URINE NEGATIVE mg/dL (<2.0)
[2018-08-11 03:59] LABS: URINE AMPHETAMINES SCREEN NEGATIVE; URINE BARBITURATES SCREEN NEGATIVE; URINE BENZODIAZEPINES SCREEN NEGATIVE; URINE COCAINE SCREEN NEGATIVE; URINE MARIJUANA (THC) SCREEN NEGATIVE; URINE METHADONE SCREEN NEGATIVE; URINE PHENCYCLIDINE SCREEN NEGATIVE
[2018-08-11 04:16] VITALS: BP 124/88
--- NOTE | 2018-08-11 21:21 | EKG REPORT ---
SEVERITY:- NORMAL ECG - SINUS RHYTHM : Confirmed by: Dorie Crandall MD 11-Aug-2018 21:21:00
== END 2018-08-11 04:24 | disposition home or self-care (01) ==
LOC: ER 01:09
DX: R07.81 Pleurodynia (principal); Z72.0 Tobacco use
CPT/HCPCS: 71045; 80307; 81001; 93005; 93010; 99285

== ENCOUNTER 2018-11-06 21:05 | Emergency (ER) | payer SELFPAY ==
[2018-11-06 21:30] VITALS: BP 158/66
[2018-11-07 00:36] LABS: ABSOLUTE BASOPHILS # (AUTO) 0.1 10^3/uL (0.0-0.2); ABSOLUTE EOSINOPHILS # (AUTO) 0.2 10^3/uL (0.0-0.6); ABSOLUTE LYMPHOCYTES (AUTO) 2.4 10^3/uL (0.5-4.7); ABSOLUTE MONOCYTES (AUTO) 0.4 10^3/uL (0.1-1.4); ABSOLUTE NEUT (AUTO) 3.7 10^3/uL (1.7-8.2); BASOPHILS % (AUTO) 0.9 % (0-2); EOSINOPHILS % (AUTO) 3.1 % (0-6); HEMATOCRIT 43.2 % (37.9-51.0); HEMOGLOBIN 15.5 g/dL (13.5-17.0); LYMPHOCYTES % (AUTO) 35.6 % (13-45); MEAN CORPUSCULAR HEMOGLOBIN 31.1 pg (27.0-33.4); MEAN CORPUSCULAR HGB CONC 35.9 g/dL (32.0-36.0); MEAN CORPUSCULAR VOLUME 87 fl (80-97); MONOCYTES % (AUTO) 6.5 % (3-13); PLATELET COUNT 201 10^3/uL (150-450); RED BLOOD COUNT 4.99 10^6/uL (4.35-5.55); RED CELL DISTRIBUTION WIDTH 12.2 % (11.5-14.0); SEGMENTED NEUTROPHILS % (AUTO) 53.9 % (42-78); TOTAL CELLS COUNTED % (AUTO) 100 %; WHITE BLOOD COUNT 6.8 10^3/uL (4.0-10.5)
[2018-11-07 00:55] LABS: ALANINE AMINOTRANSFERASE 33 U/L (21-72); ALBUMIN 4.4 g/dL (3.5-5.0); ALKALINE PHOSPHATASE 63 U/L (38-126); ANION GAP 9 (5-19); ASPARTATE AMINO TRANSFERASE 25 U/L (17-59); BILIRUBIN,DIRECT 0.2 mg/dL (0.0-0.4); BILIRUBIN,TOTAL 0.7 mg/dL (0.2-1.3); BLOOD UREA NITROGEN 22 mg/dL (7-20); CALCIUM 9.5 mg/dL (8.4-10.2); CARBON DIOXIDE 27 mmol/L (22-30); CHLORIDE 105 mmol/L (98-107); GLUCOSE 116 mg/dL (75-110); SODIUM 140.7 mmol/L (137-145); TOTAL PROTEIN 6.7 g/dL (6.3-8.2)
--- NOTE | 2018-11-07 02:10 | ER Document Report ---
ED General - General Chief Complaint: Hand Pain Stated Complaint: HAND/FEET ISSUE Time Seen by Provider: 11/06/18 22:40 Primary Care Provider: EMILI PATRICIO FNP-C [Primary Care Provider] - Follow up as needed Information source: Patient TRAVEL OUTSIDE OF THE [place] IN LAST 30 DAYS: No - HPI Patient complains to provider of: Burning to hands and feet Onset: Yesterday Onset/Duration: Sudden Quality of pain: Burning Severity: Moderate Pain Level: 2 Associated symptoms: None Exacerbated by: Denies Relieved by: Denies Similar symptoms previously: No Recently seen / treated by doctor: No Notes: 23-year-old male coming in today with awakening 2 tops of hands and tops of feet with a burning sensation. No redness. No swelling. No trauma. Patient is apparently generally healthy and does not take medications for any problems. Denies smoking drinking or drug use. He does not have any swelling of the extremities. He is here because he is concerned that he could have MS patient denies dizziness. Denies gait disturbance. Denies urinary incontinence or urinary retention. - Related Data Allergies/Adverse Reactions: No Known Allergies Allergy (Verified 04/06/18 11:38) Past Medical History - General Information source: Patient - Social History Smoking Status: Never Smoker Family History: Reviewed & Not Pertinent Patient has suicidal ideation: No Patient has homicidal ideation: No Renal/ Medical History: Denies: Hx Peritoneal Dialysis Psychiatric Medical History: Reports: Hx Anxiety - Immunizations Immunizations up to date: Yes Hx Diphtheria, Pertussis, Tetanus Vaccination: Yes Review of Systems - Review of Systems Notes: Constitutional: No fevers. No chills. EENT: No eye redness. No eye pain. No ear pain. No sore throat. Cardiovascular: No chest pain. No palpitations. Respiratory: No cough. No shortness of breath. No respiratory distress. Gastrointestinal: No abdominal pain. No nausea, vomiting, or diarrhea. Genitourinary: Atraumatic. No lesions. No pain. No discharge. Musculoskeletal: Atraumatic. No swelling. No deformities. Skin: No rash or lesions. Lymphatic: No swollen lymph nodes. Neurologic: No headache. No syncope. Positive for burning sensation hands and feet Psychiatric: No suicidal or homicidal ideation. Physical Exam - Vital signs Vitals: Temp Pulse Resp BP Pulse Ox 97.8 F 75 14 158/66 H 99 11/06/18 21:28 11/06/18 21:28 11/06/18 21:28 11/06/18 21:28 11/06/18 21:28 - Notes Notes: General: Well-developed, well-nourished. In no acute distress. Non-toxic appearing. Cardiac: Well-perfused. Regular rate and rhythm. No murmurs, rubs, or gallops. Pulmonary: No respiratory distress. No cyanosis. Bilateral lung fiels are clear to auscultation. Abdominal: Non-distended. Non-rigid. Bowels sounds are present in all four quadrants. No guarding or rebound. HEENT: Head is atraumatic. Conjunctivae not reddened. No tearing. PERRL. EOMI. Orbits atraumatic. No periorbital swelling or erythema. Oropharynx is without erythema, swelling, or exudates. Neck: Supple. No adenopathy. No meningismus. Dermatologic: Warm with good turgor. No rash. Atraumatic. Chest: Atraumatic. No chest wall tenderness to palpation. Musculoskeletal: Moves all extremities well. No range of motion deficits. no muscular or joint tenderness. No paraspinal muscle tenderness. no midline spinal tenderness or step-off. Hands and feet were evaluated. No swelling or erythema. No heat was noted. Neurovascularly intact. Genitourinary: Examination deferred Neurologic: No gross neurologic deficits. Psychiatric: Normal mood. Course - Re-evaluation Re-evalutation: 11/07/18 02:09 Basic labs were drawn. B12 and folate were also drawn. The workup is thus far negative. Patient will need to follow-up with his primary care doctor and/or neurology for more comprehensive workup as the differential diagnosis list is ve ry LONG. - Vital Signs Vital signs: Temp Pulse Resp BP Pulse Ox 97.8 F 75 14 158/66 H 99 11/06/18 21:28 11/06/18 21:28 11/06/18 21:28 11/06/18 21:28 11/06/18 21:28 - Laboratory Result Diagrams: 11/07/18 00:25 11/07/18 00:25 Laboratory results interpreted by me: 11/07/18 00:25 BUN 22 H Glucose 116 H Discharge - Discharge Clinical Impression: Neuropathy, Elevated blood pressure reading Condition: Good Disposition: HOME, SELF-CARE Instructions: Neuropathy ([facility]) Additional Instructions: You will need to follow-up with your primary care doctor and/or a neurologist to have a more comprehensive workup of this problem. Forms: Elevated Blood Pressure Referrals: SERINA HARVEY MD [NO LOCAL MD] - Follow up as needed
== END 2018-11-07 02:34 | disposition home or self-care (01) ==
LOC: ER 21:05
DX: G62.9 Polyneuropathy, unspecified (principal); R03.0 Elevated blood-pressure reading, without diagnosis of hypertension
CPT/HCPCS: 36415; 80053; 82607; 82746; 85025; 99283

== ENCOUNTER 2019-06-04 19:32 | Emergency (ER) | payer SELFPAY ==
[2019-06-04 19:38] VITALS: BP 150/90
[2019-06-04] MEDS ORDERED: LISINOPRIL 10 MG TABLET PO ONE (19:59)
--- NOTE | 2019-06-04 20:05 | ER Document Report ---
ED Blood Pressure Problem - General Chief Complaint: Blood Pressure Problem Stated Complaint: BLOOD PRESSURE ISSUE Time Seen by Provider: 06/04/19 19:56 Primary Care Provider: [facility] [Provider Group] - Follow up as needed [facility] [Provider Group] - Follow up as needed EMILI PATRICIO FNP-C [Primary Care Provider] - Follow up as needed Mode of Arrival: Ambulatory TRAVEL OUTSIDE OF THE [place] IN LAST 30 DAYS: No - HPI Patient complains to provider of: High blood pressure Onset: Other - 8 month Onset/Duration: Intermittent Quality of pain: Achy Severity: Mild Pain Level: 2 Problem is: Chronic problem Associated symptoms: Blurred vision, Dizziness, Headache, Lightheaded, Nausea Similar symptoms previously: Yes Recently seen / treated by doctor: Yes - Related Data Allergies/Adverse Reactions: No Known Allergies Allergy (Verified 06/04/19 19:40) Home Medications: celexa Past Medical History - General Information source: Patient - Social History Smoking Status: Former Smoker Chew tobacco use (# tins/day): No Frequency of alcohol use: Rare Drug Abuse: None Lives with: Family Family History: Reviewed & Not Pertinent Patient has suicidal ideation: No Patient has homicidal ideation: No - Past Medical History Cardiac Medical History: Reports: Hx Hypertension Pulmonary Medical History: Reports: None EENT Medical History: Reports: None Neurological Medical History: Reports: None Endocrine Medical History: Reports: None Renal/ Medical History: Reports: None Malignancy Medical History: Reports None GI Medical History: Reports: None Musculoskeletal Medical History: Reports None Skin Medical History: Reports None Psychiatric Medical History: Reports: Hx Anxiety Traumatic Medical History: Reports: None Infectious Medical History: Reports: None Surgical Hx: Negative Past Surgical History: Reports: None - Immunizations Immunizations up to date: Yes Hx Diphtheria, Pertussis, Tetanus Vaccination: Yes Review of Systems - Review of Systems Constitutional: No symptoms reported EENT: No symptoms reported, Blurred vision Cardiovascular: Dizziness Respiratory: No symptoms reported Gastrointestinal: Nausea Genitourinary: No symptoms reported Male Genitourinary: No symptoms reported Musculoskeletal: No symptoms reported Skin: No symptoms reported Hematologic/Lymphatic: No symptoms reported Neurological/Psychological: Headaches -: Yes All other systems reviewed and negative Physical Exam - Vital signs Vitals: Temp Pulse Resp BP Pulse Ox 98.1 F 77 18 150/90 H 100 06/04/19 19:36 06/04/19 19:36 06/04/19 19:36 06/04/19 19:36 06/04/19 19:36 Interpretation: Normal - General General appearance: Appears well, Alert - HEENT Head: Normocephalic, Atraumatic Eyes: Normal Pupils: PERRL Ears: Normal External canal: Normal Tympanic membrane: Normal Sinus: Normal Nasal: Purulent discharge, Swelling Mouth/Lips: Normal Mucous membranes: Normal Pharynx: Post nasal drainage Neck: Normal - Respiratory Respiratory status: No respiratory distress Chest status: Nontender Breath sounds: Normal Chest palpation: Normal - Cardiovascular Rhythm: Regular Heart sounds: Normal auscultation Murmur: No - Abdominal Inspection: Normal Distension: No distension Bowel sounds: Normal Tenderness: Nontender Organomegaly: No organomegaly - Back Back: Normal, Nontender - Extremities General upper extremity: Normal inspection, Nontender, Normal color, Normal ROM, Normal temperature General lower extremity: Normal inspection, Nontender, Normal color, Normal ROM, Normal temperature, Normal weight bearing. No: Elvis's sign - Neurological Neuro grossly intact: Yes Cognition: Normal Orientation: AAOx4 [place] Coma Scale Eye Opening: Spontaneous [place] Coma Scale Verbal: Oriented Elías Coma Scale Motor: Obeys Commands Elías Coma Scale Total: 15 Speech: Normal Motor strength normal: LUE, RUE, LLE, RLE Sensory: Normal - Psychological Associated symptoms: Normal affect, Normal mood - Skin Skin Temperature: Warm Skin Moisture: Dry Skin Color: Normal Course - Re-evaluation Re-evalutation: 06/04/19 22:45 Patient states he has had his symptoms for from 1 month to 8 months but he became concerned when a friend told him that he could have severe problem and stroke if he did not get it checked out. He states he did go to his neurologist recently and they told him that his symptoms could be diabetes or blood pressure. He states he took his blood pressure tonight and when the diastolic was over 100 he became very concerned and came into the emergency room. I have discussed the risks of leaving high blood pressure untreated. I did start him on a low-dose of lisinopril and told him that he needs to go to a primary doctor within the next 2 weeks. I did give him a 2-week supply of lisinopril. Patient verbalized understanding and agreement with treatment plan and patient was discharged home. - Vital Signs Vital signs: Temp Pulse Resp BP Pulse Ox 98.1 F 77 18 150/90 H 100 06/04/19 19:36 06/04/19 19:36 06/04/19 19:36 06/04/19 19:36 06/04/19 19:36 Discharge - Discharge Clinical Impression: High blood pressure Qualifiers: Hypertension type: unspecified Qualified Code(s): I10 - Essential (primary) hypertension Condition: Stable Disposition: HOME, SELF-CARE Instructions: Family Physicians / Practices Additional Instructions: HIGH BLOOD PRESSURE REQUIRING TREATMENT: Your blood pressure is high. This is called "hypertension." Today's reading was _150/90 (normal is less than 140/90). Your history and exam suggest that this is not a temporary problem. You need treatment of your blood pressure. If left untreated, high blood pressure greatly increases your risk of heart attack and stroke. Please don't ignore this problem. If you have blood pressure medicine but aren't using it regularly, start taking it again. Some simple things you can do to help are: Get some aerobic exercise for at least 20 minutes on a daily basis. (See your doctor before beginning any new exercise program.) Eat a low-fat diet. Lose excess weight. Avoid salty foods and avoid adding salt to any of the foods you eat. Avoid diet pills, decongestants, "energizing" herbs, and other medicines that elevate blood pressure. There are many different medicines that treat blood pressure. If your medication causes unpleasant side effects, call your doctor. There are others you can try. Treating hypertension is a life-long investment in your health. ANGIOTENSIN CONVERTING ENZYME INHIBITOR MEDICATION: "FRANDY inhibitor" drugs are used to lower high blood pressure (or to reduce the "work" of the heart in patients with heart failure). These drugs block an enzyme that makes your blood vessels constrict and makes you retain salt. The result is lower blood pressure. FRANDY inhibitors cause few side effects. The most common side effect is a dry nagging cough. Occasionally, lightheadedness may occur while you get used to the medicine. Some patients may retain extra potassium (this is a problem if you are taking potassium supplements, potassium-containing salt substitutes, or a potassium-retaining drug such as triamterene, spironolactone, or amiloride). If you are taking lithium, the lithium level must be rechecked after starting an FRANDY inhibitor. FRANDY inhibitors should NOT be used during . Contact the doctor or return if you develop severe lightheadedness, wheeze, weakness, palpitations or other new symptoms. FOLLOW-UP CARE: If you have been referred to a physician for follow-up care, call the physicians office for an appointment as you were instructed or within the next two days. If you experience worsening or a significant change in your symptoms, notify the physician immediately or return to the Emergency Department at any time for re-evaluation. Prescriptions: Lisinopril [Zestril] 5 mg PO DAILY #14 tablet Forms: Elevated Blood Pressure Referrals: EMILI PATRICIO FNP-C [Primary Care Provider] - Follow up as needed [facility] [Provider Group] - Follow up as needed [facility] [Provider Group] - Follow up as needed
== END 2019-06-04 20:39 | disposition home or self-care (01) ==
LOC: ER 19:32
DX: I10 Essential (primary) hypertension (principal); H53.8 Other visual disturbances; R51 Headache; R42 Dizziness and giddiness
CPT/HCPCS: 99283

== ENCOUNTER 2019-06-22 11:56 | Emergency (ER) | payer SELFPAY ==
--- NOTE | 2019-06-22 12:14 | ER Document Report ---
ED Medical Screen (RME) - General Chief Complaint: Shortness Of Breath Stated Complaint: SHORTNESS OF BREATH Time Seen by Provider: 06/22/19 12:10 Primary Care Provider: EMILI PATRICIO FNP-C [Primary Care Provider] - Follow up as needed Mode of Arrival: Ambulatory Information source: Patient Notes: Patient is a 24-year-old male presented to the emergency department chief complaint of shortness of breath. Patient reports he was recently taken off of lisinopril and change to amlodipine related to shortness of breath. He reports that the shortness of breath shortly became better but now has returned on his new medication. He denies any chest pain. His lungs are clear and equal bilaterally. He does have episodes of tachycardia noted on auscultation. I have greeted and performed a rapid initial assessment of this patient. A comprehensive ED assessment and evaluation of the patient, analysis of test results and completion of the medical decision making process will be conducted by additional ED providers. I have specifically instructed the patient or family members with the patient to immediately return to any nursing staff should anything change in the patient's condition or with their chief complaint. This medical record was dictated with voice recognizing software. There may be grammatical, syntax errors that are unintended. TRAVEL OUTSIDE OF THE [place] IN LAST 30 DAYS: No - Related Data Allergies/Adverse Reactions: No Known Allergies Allergy (Verified 06/22/19 12:03) Past Medical History - Social History Chew tobacco use (# tins/day): No Frequency of alcohol use: None Drug Abuse: None - Past Medical History Cardiac Medical History: Reports: Hx Hypertension Psychiatric Medical History: Reports: Hx Anxiety - Immunizations Immunizations up to date: Yes Hx Diphtheria, Pertussis, Tetanus Vaccination: Yes Physical Exam - Vital signs Vitals: Temp Pulse Resp BP Pulse Ox 97.5 F 81 18 177/81 H 97 06/22/19 11:59 06/22/19 11:59 06/22/19 11:59 06/22/19 11:59 06/22/19 11:59 Course - Vital Signs Vital signs: Temp Pulse Resp BP Pulse Ox 97.5 F 81 18 177/81 H 97 06/22/19 11:59 06/22/19 11:59 06/22/19 11:59 06/22/19 11:59 06/22/19 11:59 Doctor's Discharge - Discharge Referrals: EMILI PATRICIO, PL[employer] MANAGER-C [Primary Care Provider] - Follow up as needed
--- NOTE | 2019-06-22 13:05 | RADIOLOGY REPORT (SQ) ---
EXAM DESCRIPTION: CHEST 2 VIEWS COMPLETED DATE/TIME: 06/22/2019 12:56 pm REASON FOR STUDY: shortness of breath COMPARISON: 08/11/2018 EXAM PARAMETERS: NUMBER OF VIEWS: two views TECHNIQUE: Digital Frontal and Lateral radiographic views of the chest acquired. RADIATION DOSE: NA LIMITATIONS: none FINDINGS: LUNGS AND PLEURA: No opacities, masses or pneumothorax. No pleural effusion. MEDIASTINUM AND HILAR STRUCTURES: No masses or contour abnormalities. HEART AND VASCULAR STRUCTURES: Heart normal size. No evidence for failure. BONES: No acute findings. HARDWARE: None in the chest. OTHER: No other significant finding. IMPRESSION: NO ACUTE RADIOGRAPHIC FINDING IN THE CHEST. TECHNICAL DOCUMENTATION: JOB ID: [id number] [email or web address]- All Rights Reserved Reading location - IP/workstation name: [email or web address]
--- NOTE | 2019-06-22 18:59 | ER Document Report ---
ED General - General Chief Complaint: Shortness Of Breath Stated Complaint: SHORTNESS OF BREATH Time Seen by Provider: 06/22/19 12:10 Primary Care Provider: EMILI PATRICIO FNP-C [Primary Care Provider] - Follow up in 3-5 days Mode of Arrival: Ambulatory Notes: Patient is a 24-year-old male with history of hypertension that presents to the emergency department for chief complaint of shortness of breath and chest discomfort. Patient states he believes he is having side effects to new blood pressure medications, he was started on lisinopril a few weeks ago, at 5 mg in the increase the dose of that he started feeling short of breath and intimately having some chest discomfort so they switched him to amlodipine, and he continues to have the symptoms, he was just switched on Wednesday of this week. He currently at rest denies having any chest pain or shortness of breath. He does admit he is been having congestion in his sinuses and thinks he may been wheezing. He denies any smoking history. At this time he states he feels well, denies having any chest pain currently, denies headache, lightheadedness, dizziness, numbness, tingling or weakness. Past Medical History: Hypertension Past Surgical History: Denies surgical history Social History: Denies tobacco, alcohol or drug use. Family History: Reviewed and noncontributory for presenting illness Allergies: Reviewed, see documented allergy list. REVIEW OF SYSTEMS: Other than noted above, the 12 point review of systems was reviewed with the patient and were negative, all pertinent findings are included in the HPI. PHYSICAL EXAMINATION: Vital signs reviewed, nursing noted reviewed. GENERAL: Well-appearing, well-nourished and in no acute distress. HEAD: Atraumatic, normocephalic. EYES: Eyes appear normal, extraocular movements intact, sclera anicteric, conjunctiva are normal. ENT: nares patent, oropharynx clear without exudates. Moist mucous membranes. NECK: Normal range of motion, supple without lymphadenopathy LUNGS: Slight expiratory wheezing noted throughout all lung godfrey, no acute respiratory distress or increased work of breathing. HEART: Regular rate and rhythm without murmurs ABDOMEN: Soft, nontender, normoactive bowel sounds. No rebound, guarding, or rigidity. No masses appreciated. EXTREMITIES: Nontender, good range of motion, no pitting or edema. NEUROLOGICAL: No focal neurological deficits. Moves all extremities spontaneously Motor and sensory grossly intact on exam. PSYCH: Normal mood, normal affect. SKIN: Warm, Dry, normal turgor, no rashes or lesions noted on exposed skin TRAVEL OUTSIDE OF THE [place] IN LAST 30 DAYS: No - Related Data Allergies/Adverse Reactions: No Known Allergies Allergy (Verified 06/22/19 12:03) Past Medical History - General Information source: Patient - Social History Smoking Status: Never Smoker Chew tobacco use (# tins/day): No Frequency of alcohol use: None Drug Abuse: None Family History: Reviewed & Not Pertinent Patient has suicidal ideation: No Patient has homicidal ideation: No - Past Medical History Cardiac Medical History: Reports: Hx Hypertension Psychiatric Medical History: Reports: Hx Anxiety - Immunizations Immunizations up to date: Yes Hx Diphtheria, Pertussis, Tetanus Vaccination: Yes Physical Exam - Vital signs Vitals: Temp Pulse Resp BP Pulse Ox 97.5 F 81 18 177/81 H 97 06/22/19 11:59 06/22/19 11:59 06/22/19 11:59 06/22/19 11:59 06/22/19 11:59 Course - Re-evaluation Re-evalutation: Patient seen and examined vital signs reviewed. Laboratory data and/or imaging were ordered as appropriate for the patient's presenting symptoms and complaint, with consideration of any critical or life threatening conditions that may be associated with their obtained history and exam as noted above. Results were reviewed when available and demonstrated unremarkable work-up, was negative chest x-ray and EKG patient is asymptomatic on evaluation The patient was re-evaluated and was stable Evaluation was most consistent with possible medication adverse reaction, versus mild bronchospasm, patient given albuterol inhaler to take home, declined needing or wanting nebulizer in the ED, I switched his antihypertensive to hydrochlorothiazide, as it is less likely to have side effects as the medications he is been previously prescribed. Results were discussed with the patient at this point, after careful consideration I feel that that patient can be discharged from the emergency department, the patient was educated treatments and reasons to return to the emergency department based on their presumed diagnosis as noted above, they were advised to followup with a primary care physician in 2-3 days. Patient was agreeable to plan of care. *Note is created using voice recognition software and may contain spelling, syntax or grammatical errors. Chest X-Ray 10/24/19 12:12 IMPRESSION: NO ACUTE RADIOGRAPHIC FINDING IN THE CHEST. - Vital Signs Vital signs: Temp Pulse Resp BP Pulse Ox 97.6 F 79 20 137/89 H 98 06/22/19 19:39 06/22/19 19:39 06/22/19 19:39 06/22/19 19:39 06/22/19 19:39 - EKG Interpretation by Me Additional EKG results interpreted by me: EKG demonstrates normal sinus rhythm with a ventricular rate of 86 bpm, normal axis, normal intervals, no evidence of acute ischemia on this EKG, compared to prior EKG without significant change. Discharge - Discharge Clinical Impression: Hypertension Qualifiers: Hypertension type: unspecified Qualified Code(s): I10 - Essential (primary) hypertension Condition: Stable Disposition: HOME, SELF-CARE Instructions: High Blood Pressure, Requiring Treatment ([facility]) Additional Instructions: Please follow-up with your primary care physician, please discontinue taking the previously prescribed blood pressure medications and start the hydrochlorothiazide to see if he will help manage her blood pressure better, also if needed use the albuterol inhaler if you develop shortness of breath to see if it helps with your breathing particularly when you are working outside or exerting herself. Prescriptions: Hydrochlorothiazide [Hydrodiuril 25 mg Tablet] 25 mg PO QAM #30 tablet Referrals: EMILI PATRICIO FNP-C [Primary Care Provider] - Follow up in 3-5 days
[2019-06-22] MEDS ORDERED: ALBUTEROL SULFATE HFA (90 MCG/PUFF) 8 GM MDI (1 MDI/ER DISP) IH ONE (19:29)
[2019-06-22 19:41] VITALS: BP 137/89
--- NOTE | 2019-06-22 20:16 | EKG REPORT ---
SEVERITY:- ABNORMAL ECG - SINUS RHYTHM LEFT ATRIAL ABNORMALITY : Confirmed by: Dorie Crandall MD 22-Jun-2019 20:15:46
== END 2019-06-22 19:43 | disposition home or self-care (01) ==
LOC: ER 11:56
DX: I10 Essential (primary) hypertension (principal); R06.02 Shortness of breath; R19.8 Other specified symptoms and signs involving the digestive system and abdomen; R09.81 Nasal congestion; R06.2 Wheezing
CPT/HCPCS: 93005; 71046; 93010; J3490

== ENCOUNTER 2019-08-02 09:31 | Emergency (ER) | payer OTHER ==
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
[2019-08-02 11:11] VITALS: BP 125/65
== END 2019-08-02 11:10 | disposition home or self-care (01) ==
LOC: ER 09:31
DX: S00.31XA Abrasion of nose, initial encounter (principal); S00.531A Contusion of lip, initial encounter; W20.8XXA Other cause of strike by thrown, projected or falling object, initial encounter; Y99.0 Civilian activity done for income or pay; I10 Essential (primary) hypertension
CPT/HCPCS: 70160; 99283

== ENCOUNTER 2019-08-10 07:22 | Emergency (ER) | payer OTHER ==
--- NOTE | 2019-08-10 07:57 | EKG REPORT ---
SEVERITY:- BORDERLINE ECG - SINUS RHYTHM NONSPECIFIC INTRAVENTRICULAR CONDUCTION DELAY LVH BY VOLTAGE CRITERIA : Confirmed by: Vinod Grant MD 10-Aug-2019 07:57:31
[2019-08-10 08:35] LABS: ABSOLUTE EOSINOPHILS # (AUTO) 0.1 10^3/uL (0.0-0.6); ABSOLUTE LYMPHOCYTES (AUTO) 1.6 10^3/uL (0.5-4.7); ABSOLUTE MONOCYTES (AUTO) 0.4 10^3/uL (0.1-1.4); ABSOLUTE NEUT (AUTO) 4.2 10^3/uL (1.7-8.2); BASOPHILS % (AUTO) 0.7 % (0-2); HEMATOCRIT 48.8 % (37.9-51.0); HEMOGLOBIN 17.4 g/dL (13.5-17.0); LYMPHOCYTES % (AUTO) 25.3 % (13-45); MEAN CORPUSCULAR HGB CONC 35.8 g/dL (32.0-36.0); MEAN CORPUSCULAR VOLUME 87 fl (80-97); MONOCYTES % (AUTO) 5.6 % (3-13); PLATELET COUNT 201 10^3/uL (150-450); RED BLOOD COUNT 5.62 10^6/uL (4.35-5.55); RED CELL DISTRIBUTION WIDTH 12.2 % (11.5-14.0); SEGMENTED NEUTROPHILS % (AUTO) 66.4 % (42-78); TOTAL CELLS COUNTED % (AUTO) 100 %; WHITE BLOOD COUNT 6.3 10^3/uL (4.0-10.5)
--- NOTE | 2019-08-10 08:44 | ER Document Report ---
ED General - General Chief Complaint: Chest Pain Stated Complaint: CHEST PAIN/SHOULDER PAIN Time Seen by Provider: 08/10/19 08:42 Primary Care Provider: [facility] [Provider Group] - Follow up in 3-5 days TRAVEL OUTSIDE OF THE [place] IN LAST 30 DAYS: No - HPI Notes: 24-year-old male to the emergency department with complaints of left-sided chest pain that radiates into his left shoulder with left hand tingling that began this morning upon waking up. States that he awoke at 7 AM and had the pain. He states it is worse with big deep breath. He denies any recent new exercise or activity or any heavy lifting. He denies any nausea or vomiting or diaphoresis this morning in the setting of the chest pain. He states that last night he had a low-grade fever and also felt slightly nauseated. He states that his children have been sick with similar symptoms. He denies any cough, body aches. He did not get his flu shot this season. He does have a history of high blood pressure. He is currently taking hydrochlorothiazide. He was on an ARB but cannot tolerate it. He states that he had a reaction of shortness of breath list with lisinopril and his primary care physician at [place] placed him on an ARB to try. He was started on that on the 31 of July but found that he also had the same reaction with it. He was told by his PCM to stop the ARB but in case he had the same reaction. He does not smoke or do any drugs. He occasionally drinks alcohol. There is a strong family history of hypertension and he states that his grandfather had a heart attack at 28. He denies any leg swelling, leg pain, leg erythema. He is not on any blood thinners. [place] [address] [place]. He has no family history of coagulopathies and is not feeling short of breath with this chest pain this morning. He states that his chest pain was approximately a 3 out of 5 this morning but currently he is chest pain-free. He did not take an aspirin at home this morning. He has never had a stress test. - Related Data Allergies/Adverse Reactions: amlodipine Allergy (Verified 08/10/19 07:44) Shortness of Breath lisinopril Allergy (Verified 08/10/19 07:44) Shortness of Breath Home Medications: hctz, zyrtec, omeprazole, Past Medical History - General Information source: Patient - Social History Smoking Status: Never Smoker Frequency of alcohol use: Occasional Drug Abuse: None Lives with: Family Family History: CAD, Hypertension Patient has suicidal ideation: No Patient has homicidal ideation: No - Past Medical History Cardiac Medical History: Reports: Hx Hypertension Psychiatric Medical History: Reports: Hx Anxiety - Immunizations Immunizations up to date: Yes Hx Diphtheria, Pertussis, Tetanus Vaccination: Yes Review of Systems - Review of Systems Constitutional: Fever - "low grade fever of 99 last night". denies: Chills EENT: No symptoms reported Cardiovascular: Chest pain. denies: Palpitations, Heart racing, Orthopnea, Dyspnea Gastrointestinal: Nausea - nausea last night. denies: Abdominal pain, Diarrhea, Vomiting, Constipation Genitourinary: denies: Frequency, Flank pain Musculoskeletal: denies: Back pain Skin: No symptoms reported Neurological/Psychological: No symptoms reported -: Yes All other systems reviewed and negative Physical Exam - Vital signs Vitals: Temp Pulse Resp BP Pulse Ox 97.4 F 80 16 128/86 H 99 08/10/19 07:33 08/10/19 07:33 08/10/19 07:33 08/10/19 07:33 08/10/19 07:33 - General General appearance: Appears well, Alert - HEENT Head: Normocephalic, Atraumatic Eyes: Normal Pupils: PERRL Ears: Normal External canal: Normal Tympanic membrane: Normal Sinus: Normal Nasal: Normal Mouth/Lips: Normal Mucous membranes: Normal Pharynx: Normal Neck: Normal, Supple - Respiratory Respiratory status: No respiratory distress Chest status: Nontender. No: Accessory muscle use Breath sounds: Normal. No: Rales, Rhonchi, Stridor, Wheezing Chest palpation: Normal - Cardiovascular Rhythm: Regular Heart sounds: Normal auscultation Murmur: No Notes: no leg edema - Abdominal Inspection: Normal Distension: No distension Bowel sounds: Normal Tenderness: Nontender Organomegaly: No organomegaly - Back Back: Normal. No: CVA tenderness - Extremities General upper extremity: Normal inspection, Nontender, Normal color, Normal ROM, Normal temperature General lower extremity: Normal inspection, Nontender, Normal color, Normal ROM, Normal temperature, Normal weight bearing. No: Elvis's sign - Neurological Neuro grossly intact: Yes Cognition: Normal Orientation: AAOx4 Mulberry Coma Scale Eye Opening: Spontaneous Mulberry Coma Scale Verbal: Oriented Elías Coma Scale Motor: Obeys Commands Elías Coma Scale Total: 15 Speech: Normal Cranial nerves: Normal Cerebellar coordination: Normal Motor strength normal: LUE, RUE, LLE, RLE Additional motor exam normals: Equal corporate compliance officer. No: Pronator drift Sensory: Normal - Psychological Associated symptoms: Normal affect, Normal mood - Skin Skin Temperature: Warm Skin Moisture: Dry Skin Color: Normal Course - Re-evaluation Re-evalutation: 08/10/19 Impression: Chest pain. Patient is chest pain-free has 2- trending troponins. EKG is reassuring, heart score is 1. He is PERC negative. Low suspicion for AD. His chest pain is most consistent with a musculoskeletal origin as it hurts more with a big deep breath. He has had resolution of his chest pain and has not had any pain since arrival. Will discharge home. Have encouraged to return if he has any worsening symptoms. We will have him follow-up with his primary care physician. Patient agrees with the plan. - Vital Signs Vital signs: Temp Pulse Resp BP Pulse Ox 98.4 F 15 L 15 132/80 H 99 08/10/19 12:35 08/10/19 12:35 08/10/19 12:35 08/10/19 12:35 08/10/19 12:35 - Laboratory Result Diagrams: 08/10/19 08:15 08/10/19 08:15 Laboratory results interpreted by me: 08/10/19 08/10/19 08:15 08:15 RBC 5.62 H Hgb 17.4 H Chloride 96 L Total Bilirubin 1.6 H - Diagnostic Test Radiology reviewed: Image reviewed, Reports reviewed - EKG Interpretation by [facility] EKG shows normal: Sinus rhythm Rate: Normal Rhythm: NSR When compared to previous EKG there are: No significant change Additional EKG results interpreted by me: 08/10/19 09:20 No STEMI, no ST changes. No significant differences from prior on 06/23/19 Discharge - Discharge Clinical Impression: Chest pain Qualifiers: Chest pain type: chest pain on breathing Qualified Code(s): R07.1 - Chest pain on breathing Hypertension Qualifiers: Hypertension type: essential hypertension Qualified Code(s): I10 - Essential (primary) hypertension Condition: Stable Disposition: HOME, SELF-CARE Additional Instructions: FOLLOW UP WITH PRIMARY CARE IN 5 DAYS. RETURN IF SYMPTOMS WORSEN. Forms: Return to Work Referrals: [facility] [Provider Group] - Follow up in 3-5 days
[2019-08-10 08:57] LABS: ALBUMIN 4.9 g/dL (3.5-5.0); ALKALINE PHOSPHATASE 61 U/L (38-126); ANION GAP 13 (5-19); ASPARTATE AMINO TRANSFERASE 30 U/L (17-59); BILIRUBIN,DIRECT 0.1 mg/dL (0.0-0.4); BILIRUBIN,TOTAL 1.6 mg/dL (0.2-1.3); BLOOD UREA NITROGEN 18 mg/dL (7-20); CALCIUM 9.7 mg/dL (8.4-10.2); CARBON DIOXIDE 29 mmol/L (22-30); CHLORIDE 96 mmol/L (98-107); CREATINE KINASE 85 U/L (55-170); GLUCOSE 100 mg/dL (75-110); POTASSIUM 3.8 mmol/L (3.6-5.0); TOTAL PROTEIN 7.8 g/dL (6.3-8.2)
[2019-08-10] MEDS ORDERED: NORMAL SALINE 1000 ML 1,000 ML IV ONE (09:05)
[2019-08-10] MEDS ORDERED: ASPIRIN 81 MG TABLET, CHEWABLE PO ONE (09:05)
--- NOTE | 2019-08-10 09:08 | RADIOLOGY REPORT (SQ) ---
EXAM DESCRIPTION: CHEST 2 VIEWS COMPLETED DATE/TIME: 08/10/2019 8:54 am REASON FOR STUDY: chest pain COMPARISON: 06/22/2019 EXAM PARAMETERS: NUMBER OF VIEWS: two views TECHNIQUE: Digital Frontal and Lateral radiographic views of the chest acquired. RADIATION DOSE: NA LIMITATIONS: none FINDINGS: LUNGS AND PLEURA: No opacities, masses or pneumothorax. No pleural effusion. MEDIASTINUM AND HILAR STRUCTURES: No masses or contour abnormalities. HEART AND VASCULAR STRUCTURES: Heart normal size. No evidence for failure. BONES: No acute findings. HARDWARE: None in the chest. OTHER: No other significant finding. IMPRESSION: NO ACUTE RADIOGRAPHIC FINDING IN THE CHEST. TECHNICAL DOCUMENTATION: JOB ID: [id number] [employer]- All Rights Reserved Reading location - IP/workstation name: [email or web address]
[2019-08-10 09:10] LABS: CREATINE KINASE MB 0.49 ng/mL (<4.55)
[2019-08-10 09:11] LABS: TROPONIN I < 0.012 ng/mL
[2019-08-10 12:35] VITALS: BP 132/80
== END 2019-08-10 12:41 | disposition home or self-care (01) ==
LOC: ER 07:22
DX: R07.1 Chest pain on breathing (principal); M25.512 Pain in left shoulder; R20.2 Paresthesia of skin; I10 Essential (primary) hypertension; Z79.899 Other long term (current) drug therapy; Z82.49 Family history of ischemic heart disease and other diseases of the circulatory system; Z88.8 Allergy status to other drugs, medicaments and biological substances
CPT/HCPCS: 93005; 36415; 82553; 82550; 85025; 80053; 84484; 71046; 93010; J7030; 96360; 99285

== ENCOUNTER 2020-09-13 06:40 | Emergency (ER) | payer OTHER ==
--- NOTE | 2020-09-13 08:35 | ER Document Report ---
ED General - General Chief Complaint: Shortness Of Breath Stated Complaint: SHORTNESS OF BREATH,DIZZINESS Time Seen by Provider: 09/13/20 08:33 Primary Care Provider: MARCELLO KHANNA MD [COMMUNITY BASED STAFF] - Follow up as needed SAM VARGAS FNP-C [Primary Care Provider] - Follow up as needed TRAVEL OUTSIDE OF THE [place] IN LAST 30 DAYS: No - HPI Notes: 25-year-old male with a history of hypertension, GERD presents to the emergency room today for complaints of dizziness that started 2 days ago, reports he feels like the room is spinning when he closes his eyes as well as shortness of breath that started today on exertion, states he feels a shortness of breath when he was getting ready for work today. Patient is currently taking metoprolol for his blood pressure. Patient states "he gets like this my blood pressure gets too high". Patient's blood pressure in triage was 147/88. Patient denies any history of asthma or COPD, denies any recent surgeries, denies having chemotherapy, denies any recent long car rides or flights, denies any history of clotting disorders, denies any history of blood clots or PEs. Patient denies any positive Covid test but is unsure of any recent Covid exposure. Patient denies any chest pain, vomiting, nausea, abdominal pain, headache, does endorse some congestion and ear pressure denies any sore throat or cough. Patient denies any history of seasonal allergies. Has not tried any [id number] medications for symptoms. His primary care provider is at [facility]. - Related Data Allergies/Adverse Reactions: amlodipine Allergy (Verified 08/10/19 07:44) Shortness of Breath lisinopril Allergy (Verified 08/10/19 07:44) Shortness of Breath Home Medications: Metoprolol, Omeprazole, Citalopram Past Medical History - General Information source: Patient - Social History Smoking Status: Current Every Day Smoker - dip Chew tobacco use (# tins/day): Yes - dip Family History: CAD, Hypertension - Past Medical History Cardiac Medical History: Reports: Hx Hypertension Psychiatric Medical History: Reports: Hx Anxiety - Immunizations Immunizations up to date: Yes Hx Diphtheria, Pertussis, Tetanus Vaccination: Yes Review of Systems - Review of Systems Constitutional: No symptoms reported EENT: No symptoms reported Cardiovascular: No symptoms reported Respiratory: See HPI Gastrointestinal: No symptoms reported Genitourinary: No symptoms reported Male Genitourinary: No symptoms reported Musculoskeletal: No symptoms reported Skin: No symptoms reported Hematologic/Lymphatic: No symptoms reported Neurological/Psychological: No symptoms reported Physical Exam - Vital signs Vitals: Temp Pulse Resp BP Pulse Ox 97.6 F 76 16 147/88 H 99 09/13/20 06:45 09/13/20 06:45 09/13/20 06:45 09/13/20 06:45 09/13/20 06:45 - Notes Notes: MEDICATIONS: I agree with the patient medications as charted by the RN. ALLERGIES: I agree with the allergies as charted by the RN. PAST MEDICAL HISTORY/PAST SURGICAL HISTORY: Reviewed and agree as charted by RN. SOCIAL HISTORY: Reviewed and agree as charted by RN. FAMILY HISTORY: No significant familial comorbid conditions directly related to patient complaint EXAM: Reviewed vital signs as charted by RN. PHYSICAL EXAMINATION:reviewed vital signs by RN GENERAL: Well-appearing, well-nourished and in no acute distress. HEAD: Atraumatic, normocephalic. EYES: Pupils equal round and reactive to light, extraocular movements intact, sclera anicteric, conjunctiva are normal. ENT: Bilateral tympanic membranes with serous effusion, light reflex positive, TM intact, no erythema. nares patent, oropharynx clear without exudates. Moist mucous membranes. NECK: Normal range of motion, supple without lymphadenopathy LUNGS: Breath sounds clear to auscultation bilaterally and equal. No wheezes rales or rhonchi. HEART: Regular rate and rhythm without murmurs ABDOMEN: Soft, nontender, nondistended abdomen. No guarding, no rebound. No masses appreciated. Musculoskeletal: Normal range of motion, no pitting or edema. No cyanosis. NEUROLOGICAL: Cranial nerves grossly intact. Normal speech, normal gait. Normal sensory, motor exams PSYCH: Normal mood, normal affect. SKIN: Warm, Dry, normal turgor, no rashes or lesions noted. Course - Re-evaluation Re-evalutation: 09/13/20 09:50 Afebrile vital stable no distress. Nurses notes reviewed. CBC negative for leukocytosis or anemia, CMP negative for hepatic or renal dysfunction, no electrolyte disturbances. Troponin less than 0.012. EKG normal sinus rhythm, no STEMI. D-dimer less than 0.30 which is less than 0.50, no concern for PE, this was ordered due to patient stating he was feeling short of breath. Covid test is pending. Urinalysis is normal. Chest x-ray is unremarkable. Orthostatic vital signs show that patient does have a little bit of a dip when he is standing, while standing his blood pressures in the 120s systolically, while he is lying his systolic blood pressures in the 140s. Discussed with patient that he does need to intake oral hydration such as water or Pedialyte. Patient states he did have some relief with meclizine. discussed with patient that he can find this [id number]. Patient does work as a contractor, with multiple other men, patient states he does not wear his mask all the time. Patient is considered a PUI. discussed with him that he does need to quarantine at home until results are known, wear his mask, social distance, wash his hands etc. after performing a Medical Screening Examination, I estimate there is LOW risk for RUPTURED ESOPHAGUS, PNEUMOTHORAX, PULMONARY EMBOLISM, ACUTE CORONARY SYNDROME, OR THORACIC AORTIC DISSECTION, thus I consider the discharge disposi tion reasonable. I have reevaluated this patient multiple times and no significant life threatening changes are noted. The patient and I have discussed the diagnosis and risks, and we agree with discharging home with close follow- up. We also discussed returning to the Emergency Department immediately if new or worsening symptoms occur. We have discussed the symptoms which are most concerning (e.g., bloody sputum, worsening pain or shortness of breath) that necessitate immediate return. - Vital Signs Vital signs: Temp Pulse Resp BP Pulse Ox 98.1 F 80 16 130/81 H 99 09/13/20 14:24 09/13/20 14:24 09/13/20 14:24 09/13/20 14:24 09/13/20 14:24 - Laboratory Results Result Diagrams: 09/13/20 10:17 09/13/20 10:17 Laboratory Results Interpreted: 09/13/20 09/13/20 10:17 10:17 MCHC 36.6 H BUN 22 H Critical Laboratory Results Reviewed: No Critical Results - Radiology Results Critical Radiology Results Reviewed: No Critical Results Discharge - Discharge Clinical Impression: Person under investigation for COVID-19, Shortness of breath Condition: Stable Disposition: HOME, SELF-CARE Instructions: COVID-19 Guidance for Persons Under Investigation Additional Instructions: You were prescribed a rescue inhaler for your shortness of breath as well as meclizine for your dizziness. Is advised that you increase oral hydration for concerns of dehydration which can cause dizziness and lightheadedness. Please follow-up with your primary care provider within the next 24 to 48 hours. It is advised that you self quarantine at home, wear your mask, social distance wash your hands frequently until your Covid results are known. A work note has been given. If you experience any worsening shortness of breath, chest pain, vomiting etc. return to the emergency room. Return immediately for any new or worsening symptoms. Follow up with primary care provider, call tomorrow to make followup appointment. Prescriptions: Meclizine HCl 12.5 mg PO TIDP PRN #30 tablet PRN Reason: Albuterol Sulfate [Proair HFA Inhalation Aerosol 8.5 gm MDI] 2 puff IH Q4H PRN #1 mdi PRN Reason: Forms: Return to Work Referrals: SAM VARGAS FNP-C [Primary Care Provider] - Follow up as needed MARCELLO KHANNA MD [COMMUNITY BASED STAFF] - Follow up as needed
[2020-09-13] MEDS ORDERED: MECLIZINE HCL 12.5 MG TABLET PO ONE (09:27)
--- NOTE | 2020-09-13 09:52 | RADIOLOGY REPORT (SQ) ---
EXAM DESCRIPTION: CHEST SINGLE VIEW IMAGES COMPLETED DATE/TIME: 09/13/2020 9:44 am REASON FOR STUDY: sob COMPARISON: 08/10/2019 EXAM PARAMETERS: NUMBER OF VIEWS: One view. TECHNIQUE: Single frontal radiographic view of the chest acquired. RADIATION DOSE: NA LIMITATIONS: None. FINDINGS: LUNGS AND PLEURA: No opacities, masses or pneumothorax. No pleural effusion. MEDIASTINUM AND HILAR STRUCTURES: No masses. Contour normal. HEART AND VASCULAR STRUCTURES: Heart normal in size. Normal vasculature. BONES: No acute findings. HARDWARE: None in the chest. OTHER: No other significant finding. IMPRESSION: NO ACUTE RADIOGRAPHIC FINDING IN THE CHEST. TECHNICAL DOCUMENTATION: JOB ID: [id number] 2010 [employer]- All Rights Reserved Reading location - IP/workstation name: [email or web address]
[2020-09-13 10:58] LABS: APPEARANCE,URINE CLEAR; BILIRUBIN,URINE NEGATIVE (NEGATIVE); COLOR,URINE YELLOW; GLUCOSE, URINE NEGATIVE (NEGATIVE); KETONES,URINE NEGATIVE (NEGATIVE); LEUKOCYTE ESTERASE,URINE NEGATIVE (NEGATIVE); NITRITE,URINE NEGATIVE (NEGATIVE); PROTEIN,URINE NEGATIVE (NEGATIVE); URINE SPECIFIC GRAVITY 1.026; UROBILINOGEN,URINE NEGATIVE mg/dL (<2.0)
[2020-09-13 10:59] LABS: ABSOLUTE BASOPHILS # (AUTO) 0.1 10^3/uL (0.0-0.2); ABSOLUTE EOSINOPHILS # (AUTO) 0.1 10^3/uL (0.0-0.6); ABSOLUTE MONOCYTES (AUTO) 0.4 10^3/uL (0.1-1.4); ABSOLUTE NEUT (AUTO) 4.9 10^3/uL (1.7-8.2); BASOPHILS % (AUTO) 0.8 % (0-2); EOSINOPHILS % (AUTO) 1.6 % (0-6); HEMATOCRIT 46.1 % (37.9-51.0); HEMOGLOBIN 16.9 g/dL (13.5-17.0); LYMPHOCYTES % (AUTO) 26.8 % (13-45); MEAN CORPUSCULAR HEMOGLOBIN 30.6 pg (27.0-33.4); MEAN CORPUSCULAR HGB CONC 36.6 g/dL (32.0-36.0); MEAN CORPUSCULAR VOLUME 84 fl (80-97); MONOCYTES % (AUTO) 5.4 % (3-13); PLATELET COUNT 214 10^3/uL (150-450); RED BLOOD COUNT 5.52 10^6/uL (4.35-5.55); RED CELL DISTRIBUTION WIDTH 12.9 % (11.5-14.0); SEGMENTED NEUTROPHILS % (AUTO) 65.4 % (42-78); TOTAL CELLS COUNTED % (AUTO) 100 %; WHITE BLOOD COUNT 7.5 10^3/uL (4.0-10.5)
[2020-09-13 11:20] LABS: ALBUMIN 4.7 g/dL (3.5-5.0); ALKALINE PHOSPHATASE 72 U/L (38-126); ANION GAP 7 (5-19); ASPARTATE AMINO TRANSFERASE 34 U/L (17-59); BILIRUBIN,DIRECT 0.2 mg/dL (0.0-0.4); BILIRUBIN,TOTAL 1.2 mg/dL (0.2-1.3); BLOOD UREA NITROGEN 22 mg/dL (7-20); CALCIUM 9.5 mg/dL (8.4-10.2); CARBON DIOXIDE 27 mmol/L (22-30); CHLORIDE 104 mmol/L (98-107); GLUCOSE 98 mg/dL (75-110); POTASSIUM 4.3 mmol/L (3.6-5.0); TOTAL PROTEIN 7.5 g/dL (6.3-8.2)
[2020-09-13 14:33] VITALS: BP 130/81
--- NOTE | 2020-09-13 19:28 | EKG REPORT ---
SEVERITY:- NORMAL ECG - SINUS RHYTHM : Confirmed by: Dorie Crandall MD 13-Sep-2020 19:27:21
== END 2020-09-13 14:24 | disposition home or self-care (01) ==
LOC: ER 06:40
DX: R06.02 Shortness of breath (principal); R42 Dizziness and giddiness; I10 Essential (primary) hypertension; K21.9 Gastro-esophageal reflux disease without esophagitis; F17.290 Nicotine dependence, other tobacco product, uncomplicated; Z20.822 Contact with and (suspected) exposure to COVID-19
CPT/HCPCS: 93005; 99285; 36415; 85025; 87635; 80053; 81001; 84484; 85379; 71045; 93010; J3490; C9803